=== PATIENT | female | born 1960 | race Caucasian/White ===

== ENCOUNTER 2023-09-16 14:43 | Emergency (ER) | payer OTHER, SELFPAY ==
[2023-09-16 14:45] VITALS: BP 160/90
[2023-09-16 15:18] LABS: % Basophils 0.7 % (0-2); % Eosinophils 6.5 % (0-6); % Immature Granulocytes 0.4 % (0-0.5); % Lymphocytes 25.6 % (20.5-51.1); % Monocytes 8.3 % (1.7-9.3); % Neutrophils 58.5 % (42.2-75.2); Absolute Basophils 0.1 10^3/uL (0-0.2); Absolute Eosinophils 0.6 10^3/uL (0-0.7); Absolute Lymphocytes 2.5 10^3/uL (1.2-3.4); Absolute Monocytes 0.8 10^3/uL (0.1-0.6); Absolute Neutrophils 5.6 10^3/uL (1.4-6.5); Hematocrit 25.4 % (37.0-47.0); Hemoglobin 7.1 g/dL (12.0-16.0); Mean Corpuscular Hgb 18.8 pg (27.0-31.0); Mean Corpuscular Volume 67.4 fL (81.0-99.0); Mean Platelet Volume 9.3 fL (7.4-10.4); Nucleated Red Blood Cells % 0 %; Platelet Count 542 10^3/uL (130-400); Red Blood Cell Count 3.77 10^6/uL (4.20-5.40); Red Cell Dist. Width 17.8 % (11.5-14.5); White Blood Cell Count 9.6 10^3/uL (4.8-10.8)
[2023-09-16 15:20] VITALS: BMI 37.5
[2023-09-16 15:28] VITALS: BP 154/79
[2023-09-16 15:32] LABS: ALT (SGPT) 36 U/L (0-35); AST (SGOT) 34 U/L (14-36); Albumin 4.1 g/dl (3.5-5.0); Alkaline Phosphatase 195 U/L (38-126); Blood Urea Nitrogen 11 mg/dl (7-17); Calcium 9.5 mg/dl (8.4-10.2); Carbon Dioxide 22 mmol/L (22-30); Chloride 102 mmol/L (98-107); Estimated Creatinine Clearance 93 ml/min; Glucose 127 mg/dl (70-99); Potassium 4.1 mmol/L (3.5-5.1); Sodium 136 mmol/L (135-145); Total Bilirubin 0.6 mg/dl (0.2-1.3); Total Protein 7.2 g/dl (6.3-8.2); eGFR > 60.00
[2023-09-16 15:35] LABS: Anisocytosis 1+; Hypochromasia 1+; Microcytosis 2+; Normal RBC Morphology No; Troponin I < 0.012 ng/ml
[2023-09-16 16:00] VITALS: BP 152/80
--- NOTE | 2023-09-16 16:54 | ED.GENMED ---
History of Present Illness
General
Chief Complaint: Dizziness
Source: patient
Time Seen by Provider: 09/16/23 16:21
Travel History
Have you had any contact with someone who has COVID-19?: No
Do you have any symptoms of coronavirus? Fever > 100 degrees, chills, cough, shortness of breath, sore throat, loss of taste or smell, muscle aches, or headache?: No
History of Present Illness
History of Present Illness:
63-year-old female presents to the emergency room after having an episode of 'tunnel vision' in her right eye. Patient states she was at a computer doing work when this began. She denies any focal weakness numbness or tingling at the time. She
may have had some paresthesias of the right face at the same time as the visual change but nothing reproducible. Event occurred at about noon. She has been symptom-free since then. Patient endorses a tremendous amount of stress in her life at
this time due to work as well as family issues. Patient does have history of iron deficiency anemia requiring iron infusions.
Past History
Past History
ED Past Medical History: Asthma, GERD and Hypothyroidism
ED Past Surgical History: Cholecystectomy
Social History
Tobacco: Non-smoker
Alcohol: Occasional
Personal:
Living: with family
Employment: Employed
Phy Exam
Physical Exam
Physical Exam:
General: Awake, Alert, Oriented X3. No acute distress.
Vitals: Mildly tachycardic
Head: Atraumatic
Eyes: Pupils equal, EOMI
Throat: Airway intact, no exudates
Neck: Trachea midline
Lungs: Clear and equal b/l
Heart: Regular rate, no murmurs
Abd: Soft, Nontender, No pulsatile mass
Rectal: Heme-negative brown stool
Neuro: Nonfocal
Skin: Warm, dry, no rash, pale
Extremities: pulses equal b/l, no edema
Course
Orders/Labs/Results
Orders:
Orders
09/16/23 14:52
Electrocardiogram (*1) Urgent
Reason for Study: Vertigo / Dizzy
CT Head W/o Iv Contrast Urgent
Comment:
Reason For Exam: lost vision right eye for less than one minute
EKG- Treatment ONCE
09/16/23 15:03
Complete Blood Count/With Diff Urgent
Comprehensive Metabolic Panel Urgent
Ferritin Urgent
Comment: ADD ON
Iron Urgent
Comment: ADD ON
Total Iron Binding Urgent
Comment: ADD ON
Troponin I Urgent
09/16/23 17:14
Add On- LAB Urgent
Tests Added?: ferritin/irion/TIBC/iron saturation
09/16/23 18:37
Alprazolam [Xanax] 0.25 mg PO NOW STA
Abnormal Lab Results
09/16/23
15:03
RBC 3.77 L 10^6/uL
(4.20-5.40)
Hgb 7.1 L g/dL
(12.0-16.0)
Hct 25.4 L %
(37.0-47.0)
MCV 67.4 L fL
(81.0-99.0)
MCH 18.8 L pg
(27.0-31.0)
MCHC 28.0 L g/dL
(33.0-37.0)
RDW 17.8 H %
(11.5-14.5)
Plt Count 542 H 10^3/uL
(130-400)
Absolute Monos (auto) 0.8 H 10^3/uL
(0.1-0.6)
Eosinophils % 6.5 H %
(0-6)
Glucose 127 H mg/dl
(70-99)
Iron 31 L ug/dl
(37-170)
% Saturation 6 L %
(20-50)
Ferritin 4.6 L ng/ml
(11.1-264.0)
ALT 36 H U/L
(0-35)
Alkaline Phosphatase 195 H U/L
(38-126)
09/16/23 15:03
09/16/23 15:03
Vital Signs
Initial and Last Documented VS:
Initial Vital Signs
Temp Pulse Resp BP Pulse Ox
98.2 F 118 16 160/90 98
09/16/23 14:45 09/16/23 14:45 09/16/23 14:45 09/16/23 14:45 09/16/23 14:45
Last Documented Vital Signs
Temp Pulse Resp BP Pulse Ox
98.2 F 90 20 149/75 96
09/16/23 14:45 09/16/23 19:12 09/16/23 19:12 09/16/23 19:12 09/16/23 19:12
MDM/Problems Addressed
Differential Diagnosis Includes:
Iron deficiency anemia, ocular migraine, TIA,
MDM/Problems Addressed:
Patient presents with lesion which appeared tunneled in her right eye for less than a minute. No other focal neurologic deficits. Neuroexam normal here. Patient has had ocular migraines in the distant past. Typically she had headaches after the
visual changes. Today no headache. Patient also is under tremendous stress which may contribute. Labs have found patient to be quite anemic with a hemoglobin of 7.1. She has a microcytic anemia. Patient has had iron infusions in the past due to
symptomatic anemia. She has had GI workup including upper endoscopy, colonoscopy and capsule studies which have never shown a source of bleeding. Discussed hospitalization for transfusion and GI workup. However patient does not want to stay
because of the above GI workup she has had in the past. She does not want blood but would rather wait for an iron transfusion. Communicated with Dr. Bone who states he has not been in the office for 6 years. They would have to do a new
patient evaluation in order to arrange an iron infusion. They will try to get her in soon as possible but cannot expedited as they would have established patient. Patient will also need outpatient follow-up with GI. She understands that this can
be expedited as an inpatient but does not want to stay for hospitalization.
Chronic conditions affecting care: HTN
*Radiology
Radiology exam reviewed: radiology read reviewed
*Pulse Oximetry
Patient hypoxic: no
*EKG
Interpreted by ED Provider?: Yes
Interpretation: abnormal
Heart Rate: 108
Rate: tachycardiac
Rhythm: sinus tachycardia
[place]: normal axis
Interval: normal interval
QRS Pattern: normal QRS
Ischemia: no ischemia
*[employer]visor Interpretation
Rate: tachycardiac
Heart Rate: 108
Rhythm: sinus tachycardia
*Critical Care Note
Total Time (30-74mins, 75-104mins- exclusive of procedures): Not Applicable
ED Attending Note
-
Portions of this chart may have been created with voice recognition software.� Occasional wrong word or��sound alike� substitutions may have occurred due to the inherent limitations of voice recognition software.
Discharge Plan
Departure
Patient Disposition: Home (Routine Discharge)
Date of Disposition: 09/16/23
Time of Disposition: 18:28
Patient with high blood pressure during this ER visit?: Yes
Condition: Fair
Discharge Problem:
Symptomatic anemia, Ocular migraine
Instructions: BLOOD PRESSURE
Prescriptions:
No Action
ranitidine HCl [Zantac] 150 MG tablet
150 mg PO QPM
esomeprazole magnesium [Nexium Packet] [address] for susp in packet
40 mg PO DAILY
budesonide-formoterol [Symbicort] 1 PUFF HFA aerosol inhaler
1 puff inhalation R BID
fluticasone propionate 1 SPRAY spray,suspension
1 spray intranasal DAILY
levothyroxine 100 MCG tablet
100 mcg PO DAILY
montelukast 10 MG tablet
10 mg PO QPM
tramadol 50 MG tablet
50 mg PO Q6HPRN PRN (Reason: severe pain) Qty: 12 0RF
hydrocodone-homatropine [Hycodan (with homatropine)] 5 ML syrup
5 ml PO Q6HPRN PRN (Reason: intractable cough) Qty: 60 0RF
Patient Comments:
pt states havent taken in awhile
levalbuterol HCl 0.63 MG/3 ML solution for nebulization
0.63 mg inhalation R Q6HPRN PRN (Reason: SOB) Qty: 120 0RF
alprazolam 0.5 MG tablet
0.5 mg PO TIDPRN PRN (Reason: PALPITATIONS/ANXIETY)
Patient Comments:
pt hasn't taken in a few days
ipratropium bromide 0.5 MG/2.5 ML solution
0.5 mg inhalation R BID
Saccharomyces boulardii 250 MG capsule
250 mg PO BID
levalbuterol tartrate 1 PUFF HFA aerosol inhaler
2 puff inhalation R Q4HPRN PRN (Reason: SOB)
guaifenesin [Mucus Relief ER] 600 MG tablet extended release 12hr
600 mg PO Q12 0RF
amoxicillin-pot clavulanate 1 TABLET tablet
1 tab PO Q12 Qty: 10 0RF
Referrals:
Bell Ortega MD [Active] -
Awais Charles MD [Active] -
Chris Esposito MD [Family Provider] -
Activity Restrictions/Additional Instructions:
Please follow up with your primary doctor's office in the next 1 t 2 days.
Interventions
Interventions:
*Risk Screen - Suicide Last Done: 09/16/23 19:12
*General Assessment Last Done: 09/16/23 15:20
*Neglect/Abuse Screening Last Done: 09/16/23 19:12
ED- Fall Risk Assessment Last Done: 09/16/23 15:21
*ED COVID-19 Vaccine History Last Done: 09/16/23 14:45
*Nursing Disposition Last Done: 09/16/23 19:12
ED- Neurological Assessment Last Done: 09/16/23 15:32
ED- Cardiac Assessment Last Done: 09/16/23 19:13
ED Swallowing Screen Last Done: 09/16/23 19:11
Discharge Date and Time
Discharge Date/Time: 09/16/23 19:13
[2023-09-16 17:00] VITALS: BP 173/90
[2023-09-16 18:00] LABS: Iron 31 ug/dl (37-170)
[2023-09-16 18:10] LABS: Percent Saturation 6 % (20-50); Total Iron Binding Capacity 488 ug/dl (265-497)
[2023-09-16 18:45] LABS: Ferritin 4.6 ng/ml (11.1-264.0)
[2023-09-16] MEDS: XANAX 0.25 MG PO (18:48)
[2023-09-16 18:49] VITALS: BP 149/75
[2023-09-16 19:12] VITALS: BP 149/75
== END 2023-09-16 19:13 | disposition home or self-care (01) ==
LOC: EMR 14:43
PROVIDERS: Emergency Medicine; EMERGENCY PHYSICIAN Emergency Medicine; FAMILY PHYSICIAN Internal Medicine
DX: G43.109 Migraine with aura, not intractable, without status migrainosus (principal); D64.9 Anemia, unspecified; R03.0 Elevated blood-pressure reading, without diagnosis of hypertension; Z90.49 Acquired absence of other specified parts of digestive tract
CPT/HCPCS: 99285; 70450; 80053; 82728; 83540; 83550; 84484; 85025; 93005

== ENCOUNTER 2023-09-27 13:39 | Outpatient (RCR) | payer OTHER, SELFPAY ==
[2023-09-19 12:03] VITALS: BP 142/76
[2023-09-19 12:05] VITALS: BP 142/76
[2023-09-19 12:24] VITALS: BP 126/85
[2023-09-19 13:56] VITALS: BP 124/76
[2023-09-27] MEDS: INJECTAFER 265 MG IV (14:40)
[2023-09-27 14:44] LABS: % Basophils 0.8 % (0-2); % Eosinophils 5.3 % (0-6); % Immature Granulocytes 0.3 % (0-0.5); % Lymphocytes 27.1 % (20.5-51.1); % Monocytes 8.4 % (1.7-9.3); % Neutrophils 58.1 % (42.2-75.2); Absolute Basophils 0.1 10^3/uL (0-0.2); Absolute Eosinophils 0.4 10^3/uL (0-0.7); Absolute Monocytes 0.6 10^3/uL (0.1-0.6); Absolute Neutrophils 4.3 10^3/uL (1.4-6.5); Hematocrit 31.5 % (37.0-47.0); Mean Corp Hgb Conc. 30.5 g/dL (33.0-37.0); Mean Corpuscular Hgb 22.6 pg (27.0-31.0); Mean Corpuscular Volume 74.1 fL (81.0-99.0); Mean Platelet Volume 9.4 fL (7.4-10.4); Nucleated Red Blood Cells % 0 %; Platelet Count 370 10^3/uL (130-400); Red Blood Cell Count 4.25 10^6/uL (4.20-5.40); Red Cell Dist. Width 26.2 % (11.5-14.5); White Blood Cell Count 7.4 10^3/uL (4.8-10.8)
[2023-09-27 14:50] LABS: Hemoglobin 9.6 g/dL (12.0-16.0)
[2023-09-27 14:51] VITALS: BP 143/77
[2023-09-27 15:01] LABS: Phosphorus 3.8 mg/dl (2.5-4.5)
[2023-09-27 15:23] VITALS: BP 142/67
== END 2023-10-03 23:59 | disposition home or self-care (01) ==
LOC: OID 13:39
PROVIDERS: ATTENDING PHYSICIAN Internal Medicine Hematology & Oncology; FAMILY PHYSICIAN Internal Medicine
DX: D50.9 Iron deficiency anemia, unspecified (principal); Z86.2 Personal history of diseases of the blood and blood-forming organs and certain disorders involving the immune mechanism; T45.4X5A Adverse effect of iron and its compounds, initial encounter; Y93.89 Activity, other specified
CPT/HCPCS: 36415; 36430; 84100; 85025; 86850; 86900; 86901; 86920; 96365; J1439; P9016

== ENCOUNTER → 2023-10-16 07:10 | Outpatient (REF) | payer OTHER, SELFPAY | LOC: HWRAD 07:10 | PROVIDERS: ATTENDING PHYSICIAN Internal Medicine Gastroenterology; FAMILY PHYSICIAN Internal Medicine | DX: R10.10 Upper abdominal pain, unspecified (principal) | CPT/HCPCS: 76700 ==

== ENCOUNTER → 2023-11-27 06:21 | Day surgery (SDC) | payer OTHER, SELFPAY | LOC: GI 06:21 | PROVIDERS: ATTENDING PHYSICIAN Internal Medicine Gastroenterology | DX: D50.9 Iron deficiency anemia, unspecified (principal); Q45.8 Other specified congenital malformations of digestive system; K57.30 Diverticulosis of large intestine without perforation or abscess without bleeding; K64.8 Other hemorrhoids; K29.70 Gastritis, unspecified, without bleeding; K44.9 Diaphragmatic hernia without obstruction or gangrene | CPT/HCPCS: 45378; 43239; 88305; 88342 ==

== ENCOUNTER → 2023-12-04 07:44 | Outpatient (REF) | payer OTHER, SELFPAY | LOC: HWWDC 07:44 | PROVIDERS: ATTENDING PHYSICIAN Internal Medicine; REFERRING PHYSICIAN Obstetrics & Gynecology | DX: Z12.31 Encounter for screening mammogram for malignant neoplasm of breast (principal) | CPT/HCPCS: 77063; 77067 ==

== ENCOUNTER → 2024-06-09 13:22 | Outpatient (REF) | payer OTHER, SELFPAY ==
[2024-06-09 15:46] LABS: ALT (SGPT) 36 U/L (0-35); AST (SGOT) 35 U/L (14-36); Albumin 4.5 g/dl (3.5-5.0); Alkaline Phosphatase 194 U/L (38-126); Alkaline Phosphatase, Total 194 U/L (38-126); Direct Bilirubin 0.2 mg/dl (0.0-0.4); GGTP 188 U/L (12-43); Total Bilirubin 0.4 mg/dl (0.2-1.3); Total Protein 7.8 g/dl (6.3-8.2)
[2024-06-09 21:59] LABS: Alk Phos After Heat 66; Alkaline Phosphatase Percent 34.02
== END ==
LOC: HWLAB 13:22
PROVIDERS: ATTENDING PHYSICIAN Internal Medicine Gastroenterology; FAMILY PHYSICIAN Internal Medicine
DX: R79.89 Other specified abnormal findings of blood chemistry (principal)
CPT/HCPCS: 36415; 80076; 82977; 84078